=== PATIENT | male | born 1940 | race Caucasian/White ===

== ENCOUNTER 2018-09-15 11:15 | Inpatient (IN) | payer OTHER ==
[2018-09-27] MEDS ORDERED: XARELTO10 MG PO (06:44)
[2018-09-27] MEDS ORDERED: OXYC1TAB9 PO (06:44)
[2018-09-27] MEDS ORDERED: INTEGRA PLUS C1 EACH PO (06:44)
== END 2018-09-27 19:01 | DRG 470 ==
LOC: SURH 09-23 11:15 → O/R 09-25 08:48 → SURH 09-25 16:44
PROVIDERS: Orthopaedic Surgery Sports Medicine; Urology
PROC: 0T9B80Z Drainage of Bladder with Drainage Device, Via Natural or Artificial Opening Endoscopic (ICD-10-PCS; 2018-09-25)
PROC: 0T7D8ZZ Dilation of Urethra, Via Natural or Artificial Opening Endoscopic (ICD-10-PCS; principal; 2018-09-25 08:30)
PROC: 0SRB0JZ Replacement of Left Hip Joint with Synthetic Substitute, Open Approach (ICD-10-PCS; 2018-09-25 08:30)
DX: M16.12 Unilateral primary osteoarthritis, left hip (principal); G89.18 Other acute postprocedural pain; M70.72 Other bursitis of hip, left hip; N35.811 Other urethral stricture, male, meatal; I10 Essential (primary) hypertension; E78.49 Other hyperlipidemia

== ENCOUNTER 2021-01-30 06:28 | Day surgery (SDC) | payer OTHER ==
[~2021-01-30 06:28] MED LIST: BUSPIRONE HCL30 MG PO; COZAAR50 MG PO; INTEGRA PLUS C1 EACH PO; NAPROXEN500 MG PO; OXYC1TAB9 PO; XARELTO10 MG PO
[2021-01-30] MEDS ORDERED: ULTRAM50 MG PO (10:27)
== END 2021-01-30 14:40 | disposition home or self-care (01) ==
LOC: CIR.AMB 06:28
PROVIDERS: ATTEND Surgery
DX: K64.8 Other hemorrhoids (principal); K64.4 Residual hemorrhoidal skin tags; K64.1 Second degree hemorrhoids; Z20.822 Contact with and (suspected) exposure to COVID-19